=== PATIENT | male | born 1970 | race Hispanic/Latino ===

== ENCOUNTER 2018-02-02 21:30 | Emergency (ER) | payer SELFPAY ==
[~2018-02-02 21:30] MED LIST: ISOVUE-370 76%-LOCM 1 ML ONE
[2018-02-02] MEDS ORDERED: Adacel (T-DAP) 0.5 ML VIAL ONE (21:51)
[2018-02-02 22:00] LABS: #Eosinphils 0.2 thou/uL (0.0-0.7); #Lymphocytes 2.6 thou/uL (1.20-3.40); #Monocytes 0.5 thou/uL (0.11-0.59); #Neutrophils 3.1 thou/uL (1.40-6.50); %Basophils 0.6 % (0.0-1.0); %Eosinophils 2.3 % (0.0-10.0); %Lymphocytes 40.3 % (21.0-51.0); %Monocytes 8.4 % (0.0-10.0); %Neutrophils 48.5 % (42.0-75.0); Hemoglobin 14.8 g/dL (14.0-18.0); Mean Corpuscular HGB CONC 36.1 g/dL (32.0-36.0); Mean Corpuscular Hemoglobin 33.7 pg (27.0-31.0); Mean Corpuscular Volume 93.3 fl (80.0-94.0); Platelet Count 187 thou/uL (130-400); RBC Distribution Width 11.5 % (11.5-14.5); White Blood Cell (WBC) Count 6.5 thou/uL (4.8-10.8)
[2018-02-02] MEDS ORDERED: CEFAZOLIN/Water 2 GM/20 ML SYRINGE ONE (22:00)
[2018-02-02] MEDS ORDERED: Lidocaine 1% w/Epinephrine 1:100K 20 ML VIAL ONE (22:02)
[2018-02-02 22:07] LABS: PTT 26.5 SEC (22.9-36.1); Prothrombin Time 13.5 SEC (12.0-14.7)
[2018-02-02 22:12] LABS: Alcohol 300 mg/dL (Less than 10); Anion Gap 15 mmol/L (10-20); BUN (Urea Nitrogen) 15 mg/dL (8.9-20.6); Calc. Creatinine Clearance 0 mL/min (70-130); Calcium 8.8 mg/dL (7.8-10.44); Carbon Dioxide 19 mmol/L (22-29); Chloride 106 mmol/L (98-107); Estimated GFR-MDRD Greater than 90; Glucose 82 mg/dL (70-105); Potassium 3.3 mmol/L (3.5-5.1); Sodium 137 mmol/L (136-145)
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
== END 2018-02-02 22:35 | disposition home or self-care (01) ==
LOC: ERS 21:30
DX: S11.91XA Laceration without foreign body of unspecified part of neck, initial encounter (principal); F17.200 Nicotine dependence, unspecified, uncomplicated; X99.1XXA Assault by knife, initial encounter
CPT/HCPCS: 12044; 70498; 80048; 80307; 85025; 85610; 85730; 86850; 86900; 86901; 90471; 90715; 96361; 96374; G0390; J2001

== ENCOUNTER 2018-02-16 13:26 | Emergency (ER) | payer SELFPAY | END 2018-02-16 14:32 | disposition home or self-care (01) | LOC: ERS 13:26 | DX: S11.91XD Laceration without foreign body of unspecified part of neck, subsequent encounter (principal); F17.200 Nicotine dependence, unspecified, uncomplicated; Z71.6 Tobacco abuse counseling | CPT/HCPCS: 99406 ==